=== PATIENT | female | born 1965 | race Caucasian/White ===

== ENCOUNTER 2017-08-19 06:28 | Day surgery (SDC) | payer BC ==
--- NOTE | 2017-08-03 07:44 | HP ---
PREOPERATIVE HISTORY AND PHYSICAL: DATE OF SURGERY/ADMISSION: 08/19/17 DATE OF OFFICE VISIT/ENCOUNTER: 07/25/17 ATTENDING SURGEON: Svetlana Loza MD * (DICTATED BY JOSE BHATT) PROCEDURE: Left wrist carpal tunnel release. LICENSING REPRESENTATIVE: Dr. Last. CHIEF COMPLAINT: Left hand numbness and tingling. HISTORY OF PRESENT ILLNESS: This is a 51-year-old female, who is complaining of numbness and tingling in her left hand median nerve distribution that has been ongoing for some time now. She has had an EMG/nerve conduction study, which showed severe carpal tunnel on the left. She previously had a right carpal tunnel release and has done fairly well with that. She is now interested in pursuing surgical intervention for the left carpal tunnel syndrome. The patient has a history of mitral valve prolapse and a heart murmur. She is followed by labor delivery specialist, Dr. Last. She sees him yearly. At her last visit approximately 9 months ago, she had a normal EKG and the murmur was unchanged. PAST MEDICAL HISTORY: 1. History of mitral valve prolapse/heart murmur. 2. Anxiety/depression. 3. Attention deficit disorder. PAST SURGICAL HISTORY: 1. Cholecystectomy. 2. Facial surgery. 3. Right carpal tunnel release. CURRENT MEDICATIONS: 1. Adderall 15 mg daily. 2. Bupropion HCl ER 150 mg daily. ALLERGIES: No known drug allergies. FAMILY MEDICAL HISTORY: Significant for heart disease and cancer. SOCIAL HISTORY: The patient is a business project eng. She denies tobacco use and recreational drug use. She does drink alcohol on occasion. REVIEW OF SYSTEMS: General: Negative for fevers, chills, or night sweats. No known anesthesia problems. HEENT: Negative for headache, lightheadedness, or syncopal episodes. Integumentary: Negative for abrasions, lesions, or open wounds. Cardiothoracic: Negative for hypertension, chest pain, palpitations, or edema. Pulmonary: Negative for shortness of breath with exertion, chronic cough, COPD. GI: Negative for nausea, vomiting, diarrhea, constipation, or GERD. : Negative for nocturia, urinary frequency, urgency, history of UTIs, or kidney problems. Musculoskeletal: Positive for current complaint. Negative for chronic or intermittent back pain. Neurological: Negative for paresthesias, numbness, history of seizure, stroke, or epilepsy. Endocrine: Negative for diabetes and thyroid issues. Hematologic: Positive for easy bruising. Negative for anemia, excessive bleeding, or history of DVT. Infectious Disease: Negative for history of MRSA, hepatitis C, HIV. PHYSICAL EXAMINATION GENERAL: Well-developed, well-nourished, 51-year-old female, in no acute distress. VITAL SIGNS: Height 5 feet 5 inches, weight 127 pounds, pulse rate 68, blood pressure 116/78. HEENT: Normocephalic, atraumatic. Pupils are equal, round, and reactive to light and accommodation. Extraocular movements are intact. Throat is clear. NECK: Supple. No palpable lymph nodes. PULMONARY: Lungs are clear to auscultation bilaterally. No wheezes, rales, or rhonchi. CARDIOVASCULAR: Regular rate and rhythm. S1, S2. No murmurs, rubs, or gallops. No murmurs detected. No rubs or gallops. No edema. ABDOMEN: Positive bowel sounds, soft, nontender. NEUROLOGICAL: Alert and oriented x3. Cranial nerves II through XII are intact. Sensation is intact to light touch. MUSCULOSKELETAL: On exam of her left hand, there is no visible thenar wasting. She has weakness with thumb abduction. She has good strength with finger abduction. She can make a full fist and her wrist motion is normal. She has a positive Tinel's sign at the median nerve on the left. IMAGING STUDIES: EMG/nerve conduction study shows left chronic severe carpal tunnel syndrome. IMPRESSION: Left carpal tunnel syndrome. PLAN: The patient is scheduled to undergo a left wrist carpal tunnel release with Dr. Loza on 08/19/17. Prescription for Ultracet was e-scribed to the patient's pharmacy for postoperative pain management. JOSE BHATT [id number]/[facility] #: [id number] MTDD
[~2017-08-19 06:28] MED LIST: Buffered Lidocaine 0.9% SYRIN* 5 ML/SYR SYRINGE INTRADERM ONE; Famotidine TAB* 20 MG ONE; Famotidine TAB* 20 MG PO ONE
[2017-08-19] MEDS ORDERED: Lidocaine 1% INJ* 10 MG/ML 30 ML SDV ONE (07:12)
[2017-08-19] MEDS ORDERED: Midazolam* 1 MG/ML 5 ML VIAL (5 MG) ONE (07:21)
[2017-08-19] MEDS ORDERED: fentaNYL* 50 MCG/ML 2 ML VIAL (100 MCG VIAL) ONE (07:21)
[2017-08-19] MEDS ORDERED: Lidocaine 2% PF * 5 ML VIAL ONE (07:25)
[2017-08-19] MEDS ORDERED: Propofol* 10 MG/ML 20 ML BTL IV PUSH ONE (07:25)
[2017-08-19] MEDS ORDERED: Ketorolac INJ* 30 MG/ML 1 ML VIAL ONE (07:25)
[2017-08-19] MEDS ORDERED: Ondansetron INJ* 2 MG/ML VIAL ONE (07:25)
[2017-08-19] MEDS ORDERED: Acetaminophen TAB* 325 MG PO PRN (07:57)
[2017-08-19] MEDS ORDERED: Naloxone* 0.4 MG/ML 1 ML VIAL IV PRN (07:57)
[2017-08-19 08:09] VITALS: BP 91/67
--- NOTE | 2017-08-19 12:57 | OP ---
CC: Dr. Loza.* OPERATIVE REPORT: DATE OF OPERATION: 08/19/17 - AFSANEH DATE OF : 63. SURGEON: Svetlana Loza MD. EVENING SITTER: JOSE Smith. ANESTHESIOLOGIST: Leigh Ann Ladd MD. ANESTHESIA: Local MAC. PRE-OP DIAGNOSIS: Left carpal tunnel syndrome. POST-OP DIAGNOSIS: Left carpal tunnel syndrome. OPERATIVE PROCEDURE: Left carpal tunnel release. INDICATIONS: Kamilah is a 51-year-old female with numbness and tingling in the median nerve distribution of her left hand. She presents for left carpal tunnel release. ESTIMATED BLOOD LOSS: Zero. TOURNIQUET TIME: About 5 minutes. DESCRIPTION OF PROCEDURE: The patient was brought to the operating room, was given a sedation anesthetic, and a local infiltration of 10 cc of 1% plain lidocaine in the palm of her left hand. The skin of her left hand and forearm was prepped and draped in the usual sterile fashion. The hand and forearm were exsanguinated and the tourniquet elevated to 250 mmHg. A longitudinal incision was made in the palm inline with the ring finger. We dissected sharply through the subcutaneous tissue down to the transverse carpal ligament. The ligament was divided sharply with a knife and then more proximally with scissors. The nerve was dissected free from the surrounding tissue and there was an area of moderate compression at the mid portion of the ligament. The wound was irrigated and the skin edges were reapproximated with 4-0 nylon suture. The wound was dressed with Xeroform, 4x4, Webril, and an Marito wrap. The patient tolerated the procedure well and was brought to the recovery room in good condition. [id number]/[facility] #: [id number] [facility]
== END 2017-08-19 08:33 | disposition home or self-care (01) ==
LOC: OREAST 06:28
PROVIDERS: ATTEND Orthopaedic Surgery
DX: G56.02 Carpal tunnel syndrome, left upper limb (principal); F41.8 Other specified anxiety disorders; I34.1 Nonrheumatic mitral (valve) prolapse; F98.8 Other specified behavioral and emotional disorders with onset usually occurring in childhood and adolescence
CPT/HCPCS: A9270-GY; J1885; J2250; J2405; J2704; J3010

== ENCOUNTER → 2018-01-15 22:54 | Emergency (ER) | payer BC ==
[~2018-01-15 22:54] MED LIST changes: -Buffered Lidocaine 0.9% SYRIN* 5 ML/SYR SYRINGE INTRADERM ONE; -Famotidine TAB* 20 MG ONE; -Famotidine TAB* 20 MG PO ONE; +NS 0.9% 1000 ML* 1,000 ML IV ONE
[2018-01-15 23:41] LABS: Urine Appearance Clear; Urine Blood Negative (Negative); Urine Color Straw; Urine Ketones Negative (Negative); Urine Protein Negative (Negative); Urine Specific Gravity 1.004 (1.010-1.030); Urine Urobilinogen Negative (Negative)
--- NOTE | 2018-01-15 23:51 | ED ---
HPI Chest Pain - HPI Summary HPI Summary: Patient with history of MVP complains of progressive frequency of palpitations, new onset pinching in her left side chest rated at 2/10, increase in chronic exertional SOB x 1 month, and also complains choking pressure at throat, nasal congestion, bilateral ear pain with onset of congestion 2 days. Patient states she has history of palpitations 30 years associated with MVP, has yearly check up with cardiology. Symptoms often associated with stress as well as exertion. Patient was recently placed on propranolol 5 mg daily 5 days ago by laboratory sampler for these symptoms. States medication has produced no change. Patient states she did not see laboratory sampler, prescription was phoned in. Patient states symptoms are much worse now than they ever have been. Denies fever, cough, sore throat, WIN, neck stiffness, N/V/D, abdominal pain, change in urine, change in BM. Medical history is MVP, herpes. No anti-coag. Negative family cardiac history, nonsmoker. Patient unsure if she has had stress test in the past 2 years or not. - History of Current Complaint Chief Complaint: EDChestPainROMI Time Seen by Provider: 01/15/18 23:22 Hx Obtained From: Patient Onset/Duration: Started Weeks Ago Timing: Intermittent Initial Severity: Mild Pain Intensity: 2 Pain Scale Used: 0-10 Numeric Chest Pain Location: Left Anterior Chest Pain Radiates: Yes Chest Pain Radiates To:: Neck Character: Tightness Aggravating Factor(s): Exertion Associated Signs and Symptoms: Positive: Chest Pain, Shortness of Breath, Nasal Congestion - Allergy/Home Medications Allergies/Adverse Reactions: Allergies Allergy/AdvReac Type Severity Reaction Status Date / Time Adhesive Tape [Plastic Tape] Allergy See Comment Verified 08/19/17 06:46 PMH/Surg Hx/FS Hx/Imm Hx Endocrine/Hematology History: Denies: Hx Anticoagulant Therapy, Hx Diabetes Cardiovascular History: Reports: Hx Valvular Heart Disease - MVP- DR. TERE OBANDO, Other Cardiovascular Problems/Disorders - mitral valve prolapse Denies: Hx Cardiac Arrest, Hx Hypertension, Hx Pacemaker/ICD GI History: Reports: Other GI Disorders - see above History: Denies: Hx Dialysis Musculoskeletal History: Reports: Hx Arthritis Sensory History: Reports: Hx Contacts or Glasses - both, will wear glasses day of surgery Denies: Hx Hearing Aid Opthamlomology History: Reports: Hx Contacts or Glasses - both, will wear glasses day of surgery Neurological History: Reports: Other Neuro Impairments/Disorders - ADD Psychiatric History: Reports: Hx Anxiety, Hx Depression Denies: Hx Panic Disorder - Cancer History Hx Chemotherapy: No Hx Radiation Therapy: No - Surgical History Surgery Procedure, Year, and Place: cholecystectomy - [facility] [place]. right carpal tunnel release - 2015 - [facility] [place]. rhinoplasty in [facility] [place] Hx Anesthesia Reactions: Yes - reports takes a while to wake up Infectious Disease History: No Infectious Disease History: Denies: Traveled Outside the [place] in Last 30 Days - Social History Alcohol Use: Occasionally Substance Use Type: Reports: None Smoking Status (MU): Former Smoker Type: Cigarettes Amount Used/How Often: casually x3 yrs Have You Smoked in the Last Year: No Review of Systems Constitutional: Negative Eyes: Negative Positive: Ear Ache, Nasal Discharge Positive: Palpitations, Chest Pain Positive: Shortness Of Breath Gastrointestinal: Negative Genitourinary: Negative Musculoskeletal: Negative Skin: Negative Neurological: Negative Psychological: Normal All Other Systems Reviewed And Are Negative: Yes Physical Exam Triage Information Reviewed: Yes Vital Signs On Initial Exam: Initial Vitals Temp Pulse Resp BP Pulse Ox 97.5 F 76 16 125/70 100 01/15/18 23:05 01/15/18 23:05 01/15/18 23:05 01/15/18 23:05 01/15/18 23:05 Vital Signs Reviewed: Yes Appearance: Positive: Well-Appearing Skin: Positive: Warm Head/Face: Positive: Normal Head/Face Inspection Eyes: Positive: Normal ENT: Positive: Normal ENT inspection Neck: Positive: Supple Respiratory/Lung Sounds: Positive: Clear to Auscultation Cardiovascular: Positive: Normal Abdomen Description: Positive: Nontender Musculoskeletal: Positive: Normal Neurological: Positive: Normal Psychiatric: Positive: Normal AVPU Assessment: Alert - Steens Coma Scale Best Eye Response: 4 - Spontaneous Best Motor Response: 6 - Obeys Commands Best Verbal Response: 5 - Oriented Coma Scale Total: 15 Diagnostics - Vital Signs Vital Signs Temp Pulse Resp BP Pulse Ox 01/15/18 23:05 97.5 F 76 16 125/70 100 - Laboratory Lab Results: Lab Results 01/15/18 Range/Units 23:31 Urine Color Straw Urine Appearance Clear Urine pH 6.0 (5-9) Ur Specific [place] 1.004 L (1.010-1.030) Urine Protein Negative (Negative) Urine Ketones Negative (Negative) Urine Blood Negative (Negative) Urine Nitrate Negative (Negative) Urine Bilirubin Negative (Negative) Urine Urobilinogen Negative (Negative) Ur Leukocyte Esterase Negative (Negative) Urine Glucose Negative (Negative) Result Diagrams: 01/15/18 23:51 01/15/18 23:51 Lab Statement: Any lab studies that have been ordered have been reviewed, and results considered in the medical decision making process. - Radiology cxr Xray Interpretation: No Acute Changes Radiology Interpretation Completed By: ED Physician - EKG 1 Cardiac Rate: NL EKG Rhythm: Sinus Rhythm ST Segment: Normal Ectopy: None Chest Pain Course/Dx - Course Course Of Treatment: Patient with history of MVP complains of progressive frequency of palpitations, new onset pinching in her left side chest rated at 2/ 10, increase in chronic exertional SOB x 1 month, and also complains choking pressure at throat, nasal congestion, bilateral ear pain with onset of congestion 2 days. Patient states she has history of palpitations 30 years associated with MVP, has yearly check up with cardiology. Symptoms often associated with stress as well as exertion. Patient was recently placed on propranolol 5 mg daily 5 days ago by laboratory sampler for these symptoms. States medication has produced no change. Patient states she did not see laboratory sampler , prescription was phoned in. Patient states symptoms are much worse now than they ever have been. Denies fever, cough, sore throat, WIN, neck stiffness, N/V/ D, abdominal pain, change in urine, change in BM. Medical history is MVP, herpes. No anti-coag. Negative family cardiac history, nonsmoker. Vital signs normal. EKG unremarkable. Chest x-ray unremarkable. Labs unremarkable. Initial troponin unremarkable. Heart score 2. Follow up with cardiology. - Diagnoses Provider Diagnoses: Intermittent palpitations Discharge - Sign-Out/Discharge Documenting (check all that apply): Patient Departure - Discharge Plan Condition: Stable Disposition: HOME Patient Education Materials: Heart Palpitations (ED) Referrals: Mildred Persaud NP [Primary Care Provider] - Additional Instructions: Follow-up with your laboratory sampler. Return to the ED for any new or worsening symptoms - Billing Disposition and Condition Condition: STABLE Disposition: Home
[2018-01-16 00:01] LABS: ABS Basophils 0.1 10^3/ul (0-0.2); ABS Eosinophils 0.2 10^3/ul (0-0.6); ABS Monocytes 0.8 10^3/ul (0-0.8); ABS Neutrophils 5.6 10^3/ul (1.5-7.7); ABS Nucleated RBC 0 10^3/ul; Eosinophil % 1.9 % (0-6); Hematocrit 38 % (35-47); Lymphocyte % 22.9 % (25-47); Mean Corpuscular HGB Conc 35 g/dl (31-36); Mean Corpuscular Hemoglobin 32 pg (27-31); Mean Corpuscular Volume 92 fL (80-97); Mean Platelet Volume 7.8 um3 (7.4-10.4); Nucleated Red Blood Cells % 0; Platelet Count 277 10^3/ul (150-450); Red Blood Count 4.07 10^6/ul (4.00-5.40); Red Cell Distribution Width 13 % (10.5-15); White Blood Count 8.7 10^3/ul (3.5-10.8)
[2018-01-16 00:19] LABS: EGFR Non-African American 66.3 (>60)
[2018-01-16 02:27] VITALS: BP 128/64
--- NOTE | 2018-01-16 08:09 | RAD ---
Indication: Palpitation. Single frontal view of the chest performed at 2350 hours was reviewed. No prior study is available for comparison. No mediastinal shift is noted. Heart is of normal size and configuration. Lung riddle appear clear. IMPRESSION: NO ACTIVE CARDIOPULMONARY DISEASE IS NOTED. R0
== END | disposition home or self-care (01) ==
LOC: ED 22:54
DX: R00.2 Palpitations (principal); R06.02 Shortness of breath; R09.89 Other specified symptoms and signs involving the circulatory and respiratory systems; R09.81 Nasal congestion; H92.03 Otalgia, bilateral; Z91.048 Other nonmedicinal substance allergy status; Z87.891 Personal history of nicotine dependence
CPT/HCPCS: 36415; 71045; 80053; 81003; 83605; 83880; 84443; 84484; 85025; 93005; 96360; 99285